=== PATIENT | female | born 1980 | race Caucasian/White ===

== ENCOUNTER 2016-11-22 01:08 | Observation (INO) ==
[2016-11-22] MEDS ORDERED: 0.9 % Sodium Chloride 1,000 ML IVC ONE (01:26)
--- NOTE | 2016-11-22 01:47 | Emergency Department Note ---
Disposition Clinical Impression: Pyelonephritis, Hypokalemia Disposition: Admitted As Inpatient Condition: Good Referrals: NONE,PCP [Primary Care Provider] - Forms: Work/School Release, ED Satisfaction Letter Time of Disposition: 04:25 Abdominal Pain HPI - General Chief Complaint: ED Urogenital-Female Stated Complaint: right flank pain Time Seen by Provider: 11/22/16 01:09 Source: patient, family - History of Present Illness HPI Narrative: Patient presents to the emergency department for evaluation of right flank and right-sided abdominal pain. She states this pain came on Thursday. She states that his been intermittent since Thursday. She has had some nausea. She also admits to urinary frequency urgency and dysuria. Denies vaginal bleeding or discharge. She reports a history of recurrent pyelonephritis. I have reviewed prior charts, her urine culture results revealed Escherichia coli which was sensitive to multiple medications to include cephalosporins. Pain Scale: 9 - Related Data Home Medications Medication Instructions Recorded Confirmed Ibuprofen [Motrin] 800 mg PO DAILY 09/23/16 11/22/16 Ranitidine HCl [Zantac 75] 150 mg PO BID 09/23/16 11/22/16 Allergies Allergy/AdvReac Type Severity Reaction Status Date / Time No Known Allergies Allergy Verified 10/30/16 13:36 Constitutional: Reports: fever, chills Eyes: Denies: vision change Cardiovascular: Denies: chest pain, palpitations, dyspnea on exertion Respiratory: Denies: cough, dyspnea Gastrointestinal: Reports: as per HPI Genitourinary: Reports: as per HPI Musculoskeletal: Reports: back pain Integumentary: Denies: rash Neurological: Reports: headache. Denies: weakness, numbness, paresthesias Abdominal Pain PMH - Past Medical History Medical history: Reports: arthritis, migraine Female Surgical History: Reports: other [employer] history: Reports: bilateral tubal ligation Psychiatric history: Reports: panic disorder - Social History Smoking status: Current every day smoker Alcohol use: Reports: rarely Drug use: Reports: none Physical Exam - General Limitations: no limitations General appearance: alert, in no apparent distress - Head Head exam: atraumatic, normocephalic, normal inspection - Eye Eye exam: Present: normal appearance, PERRL, EOMI. Absent: scleral icterus - ENT ENT exam: normal exam, normal oropharynx, mucous membranes moist, TM's normal bilaterally - Neck Neck exam: Present: normal inspection, full ROM. Absent: tenderness, meningismus - Respiratory Respiratory exam: Present: normal lung sounds bilaterally - Cardiovascular Cardiovascular exam: Present: tachycardia, normal heart sounds - Abdominal Exam Abdominal exam: Present: soft, Non-Tender, normal bowel sounds. Absent: tenderness, distention, guarding, rebound, rigidity - Extremities Exam Extremities exam: Present: normal inspection, full ROM. Absent: tenderness, pedal edema, calf tenderness - Back Exam Back exam: Present: CVA tenderness (R). Absent: CVA tenderness (L) - Neurological Exam Neurological exam: Present: alert, oriented X3, CN II-XII intact - Psychiatric Psychiatric exam: Present: normal affect, normal mood - Skin Skin exam: Present: warm, dry, intact, normal color Course Course Narrative: 0424: Temperature 98.7. Heart rate 105. Blood pressure 128/73. Patient will be admitted to the hospitalist service for treatment of bilateral pyelonephritis with associated hypokalemia. Vital Signs Temperature 104.0 F H 11/22/16 01:11 Pulse Rate 139 11/22/16 01:11 Respiratory Rate 20 11/22/16 01:11 Blood Pressure 155/78 11/22/16 01:11 O2 Sat by Pulse Oximetry 98 11/22/16 01:11 Temperature 104.0 F H 11/22/16 01:11 Pulse Rate 115 11/22/16 03:54 Respiratory Rate 18 11/22/16 03:54 Blood Pressure 128/74 11/22/16 03:54 O2 Sat by Pulse Oximetry 96 11/22/16 03:54 Oxygen Delivery Oxygen Delivery Room Air Abdominal Pain - Medical Records Medical records reviewed: Yes I reviewed the patient's medical records. - Lab Data Lab results reviewed: Yes I reviewed the patient's lab results. Result diagrams: 11/22/16 02:05 11/22/16 02:05 Lab Results 11/22/16 11/22/16 11/22/16 Range/Units 02:05 02:05 02:05 WBC 12.5 H (4.3-11.1) K/mcL RBC 3.50 L (3.82-4.97) M/mcL Hgb 10.9 L (11.5-15.4) g/dL Hct 31.8 L (35.3-44.9) % MCV 90.9 (83.0-100.0) fL MCH 31.1 (28.0-33.3) pg MCHC 34.3 (31.6-35.5) g/dL RDW 12.9 (11.5-14.5) % Plt Count 313 (140-400) K/mcL MPV 10.1 (9.4-12.4) fL Immature Gran % 0.4 (0-4) % Seg Neutrophils % 77.4 % Lymphocytes % 10.3 % Monocytes % 9.6 % Eosinophils % 2.2 % Basophils % 0.1 % Neutrophils # 9.7 H (1.6-8.9) K/mcL Lymphocytes # 1.3 (0.6-4.6) K/mcL Monocytes # 1.2 (0.0-1.3) K/mcL Eosinophils # 0.3 (0.0-0.6) K/mcL Basophils # 0.0 (0.0-0.2) K/mcL VBG Lactic Acid 0.7 (0.5-2.2) mmol/L Sodium 134 L (136-145) mEq/L Potassium 2.8 L (3.5-4.5) mEq/L Chloride 96 L (98-109) mEq/L Carbon Dioxide 24 (19-29) mEq/L BUN 10 (7-20) mg/dL Creatinine 0.71 (0.57-1.11) mg/dL Est GFR ( Amer) > 60 (> 60) Est GFR (Non-Af Amer) > 60 (> 60) BUN/Creatinine Ratio 14 (6-26) Glucose 111 H (70-99) mg/dL Calculated Osmolality 278 L (280-300) Calcium 9.2 (8.6-10.8) mg/dL Total Bilirubin 0.4 (0.2-1.2) mg/dL Direct Bilirubin 0.2 (0.0-0.5) mg/dL Indirect Bilirubin 0.2 (0.0-1.2) mg/dL AST 11 (5-34) Units/L ALT 11 (0-55) Units/L Alkaline Phosphatase 133 H (38-126) Units/L Serum Total Protein 7.2 (6.0-8.3) g/dL Albumin 2.5 L (3.5-5.0) g/dL Globulin 4.7 H (2.4-3.5) g/dL Albumin/Globulin Ratio 0.5 L (1.1-2.2) Amylase 16 L (25-125) Units/L Lipase < 4 L (8-78) Units/L Urine Color (Yellow) Urine Clarity (Clear) Urine pH (5.0-8.0) pH Units Ur Specific [place] (1.010-1.025) Urine Protein (Neg-Trace) mg/dL Urine Glucose (UA) (Normal) mg/dL Urine Ketones (Negative) mg/dL Urine Blood (Negative) Urine Nitrite (Negative) Urine Bilirubin (Negative) Urine Urobilinogen (Normal) mg/dL Ur Leukocyte Esterase (Negative) Urine Microscopic RBC (0-3) per hpf Urine Microscopic WBC (0-3) per hpf Ur Squamous Epith Cells (None-Few) per lpf Urine Bacteria (None-Few) per hpf Urine Mucus (Few) Ur Culture Indicated? (NO) Urine Test (Negative) Urine Opiates Screen (Oxddhz=657) ng/mL Ur Oxycodone Screen (Cutoff= 100) ng/mL Ur Barbiturates Screen (Cxprsi=539) ng/mL Ur Phencyclidine Scrn (Cutoff=25) ng/mL Ur Amphetamines Screen (Hrfjtm=4353) ng/mL U Benzodiazepines Scrn (Xvodjn=363) ng/mL Urine Cocaine Screen (Cutoff= 300) ng/mL U Marijuana (THC) Screen (Cutoff = 50) ng/mL 11/22/16 11/22/16 11/22/16 Range/Units 02:15 02:15 02:15 WBC (4.3-11.1) K/mcL RBC (3.82-4.97) M/mcL Hgb (11.5-15.4) g/dL Hct (35.3-44.9) % MCV (83.0-100.0) fL MCH (28.0-33.3) pg MCHC (31.6-35.5) g/dL RDW (11.5-14.5) % Plt Count (140-400) K/mcL MPV (9.4-12.4) fL Immature Gran % (0-4) % Seg Neutrophils % % Lymphocytes % % Monocytes % % Eosinophils % % Basophils % % Neutrophils # (1.6-8.9) K/mcL Lymphocytes # (0.6-4.6) K/mcL Monocytes # (0.0-1.3) K/mcL Eosinophils # (0.0-0.6) K/mcL Basophils # (0.0-0.2) K/mcL VBG Lactic Acid (0.5-2.2) mmol/L Sodium (136-145) mEq/L Potassium (3.5-4.5) mEq/L Chloride (98-109) mEq/L Carbon Dioxide (19-29) mEq/L BUN (7-20) mg/dL Creatinine (0.57-1.11) mg/dL Est GFR ( Amer) (> 60) Est GFR (Non-Af Amer) (> 60) BUN/Creatinine Ratio (6-26) Glucose (70-99) mg/dL Calculated Osmolality (280-300) Calcium (8.6-10.8) mg/dL Total Bilirubin (0.2-1.2) mg/dL Direct Bilirubin (0.0-0.5) mg/dL Indirect Bilirubin (0.0-1.2) mg/dL AST (5-34) Units/L ALT (0-55) Units/L Alkaline Phosphatase (38-126) Units/L Serum Total Protein (6.0-8.3) g/dL Albumin (3.5-5.0) g/dL Globulin (2.4-3.5) g/dL Albumin/Globulin Ratio (1.1-2.2) Amylase (25-125) Units/L Lipase (8-78) Units/L Urine Color Yellow (Yellow) Urine Clarity Clear (Clear) Urine pH 6.5 (5.0-8.0) pH Units Ur Specific [place] 1.010 (1.010-1.025) Urine Protein 100 H (Neg-Trace) mg/dL Urine Glucose (UA) Normal (Normal) mg/dL Urine Ketones Negative (Negative) mg/dL Urine Blood Large H (Negative) Urine Nitrite Positive A (Negative) Urine Bilirubin Negative (Negative) Urine Urobilinogen Normal (Normal) mg/dL Ur Leukocyte Esterase Trace H (Negative) Urine Microscopic RBC 5-15 H (0-3) per hpf Urine Microscopic WBC 30-50 H (0-3) per hpf Ur Squamous Epith Cells Few (None-Few) per lpf Urine Bacteria Many H (None-Few) per hpf Urine Mucus Few (Few) Ur Culture Indicated? YES A (NO) Urine Test Negative (Negative) Urine Opiates Screen Negative (Wktqla=205) ng/mL Ur Oxycodone Screen Negative (Cutoff= 100) ng/mL Ur Barbiturates Screen Negative (Ncivca=123) ng/mL Ur Phencyclidine Scrn Negative (Cutoff=25) ng/mL Ur Amphetamines Screen Positive H (Sshgqy=5836) ng/mL U Benzodiazepines Scrn Negative (Jlunjo=909) ng/mL Urine Cocaine Screen Negative (Cutoff= 300) ng/mL U Marijuana (THC) Screen Positive H (Cutoff = 50) ng/mL ITS Impressions Abdomen/Pelvis CT 11/22/16 01:45 IMPRESSION: Enhancement pattern of both kidneys suggests bilateral pyelonephritis. D/ / Sean Robles MD / Sean Robles MD Interpreting Provider: Sean Robles MD - Radiology Data Radiology results reviewed: Yes I reviewed the patient's radiology results.
[2016-11-22 02:14] LABS: Basophils % 0.1 %; Eosinophils # 0.3 K/mcL (0.0-0.6); Eosinophils % 2.2 %; Hematocrit 31.8 % (35.3-44.9); Hemoglobin 10.9 g/dL (11.5-15.4); Immature Granulocytes % 0.4 % (0-4); Lymphocytes # 1.3 K/mcL (0.6-4.6); Lymphocytes % 10.3 %; Mean Corpuscular HGB Conc 34.3 g/dL (31.6-35.5); Mean Corpuscular Hemoglobin 31.1 pg (28.0-33.3); Mean Corpuscular Volume 90.9 fL (83.0-100.0); Mean Platelet Volume 10.1 fL (9.4-12.4); Monocytes # 1.2 K/mcL (0.0-1.3); Monocytes % 9.6 %; Neutrophils # 9.7 K/mcL (1.6-8.9); Platelet Count 313 K/mcL (140-400); Red Cell Distribution Width 12.9 % (11.5-14.5); Segmented Neutrophils % 77.4 %
[2016-11-22 02:22] LABS: Bilirubin,Urine Negative (Negative); Blood,Urine Large (Negative); Clarity,Urine Clear (Clear); Color,Urine Yellow (Yellow); Glucose,Urine (UA) Normal (Normal); Ketones,Urine Negative (Negative); Leukocyte Esterase,Urine Trace (Negative); Nitrite,Urine Positive (Negative); PH,Urine 6.5 pH Units (5.0-8.0); Protein,Urine 100 mg/dL (Neg-Trace); Urobilinogen,Urine Normal (Normal)
[2016-11-22 02:28] LABS: Amphetamine Screen,Urine Positive ng/mL (Cutoff=1000); Barbiturate Screen,Urine Negative ng/mL (Cutoff=200); Benzodiazepines Screen,Urine Negative ng/mL (Cutoff=200); Cannabinoid Screen,Urine Positive ng/mL (Cutoff = 50); Cocaine Screen,Urine Negative ng/mL (Cutoff= 300); Opiate Screen,Urine Negative ng/mL (Cutoff=300); Phencyclidine Screen,Urine Negative ng/mL (Cutoff=25)
[2016-11-22 02:31] LABS: Alanine Aminotransferase 11 Units/L (0-55); Albumin 2.5 g/dL (3.5-5.0); Albumin/Globulin Ratio 0.5 (1.1-2.2); Alkaline Phosphatase 133 Units/L (38-126); Amylase 16 Units/L (25-125); Aspartate Amino Transferase 11 Units/L (5-34); BUN/Creatinine Ratio 14 (6-26); Bilirubin,Direct 0.2 mg/dL (0.0-0.5); Bilirubin,Indirect 0.2 mg/dL (0.0-1.2); Bilirubin,Total 0.4 mg/dL (0.2-1.2); Blood Urea Nitrogen 10 mg/dL (7-20); Calcium 9.2 mg/dL (8.6-10.8); Carbon Dioxide 24 mEq/L (19-29); Chloride 96 mEq/L (98-109); Globulin 4.7 g/dL (2.4-3.5); Glucose 111 mg/dL (70-99); Lipase < 4 Units/L (8-78); Osmolality,Calculated 278 (280-300); Potassium 2.8 mEq/L (3.5-4.5); Sodium 134 mEq/L (136-145); Total Protein 7.2 g/dL (6.0-8.3); eGFR For African Americans > 60 (> 60); eGFR For Non-African Americans > 60 (> 60)
[2016-11-22 02:32] LABS: Bacteria,Urine Many per hpf (None-Few); Mucus,Urine Few (Few); Squamous Epithelial Cell,Urine Few per lpf (None-Few); WBC,Urine 30-50 per hpf (0-3)
[2016-11-22] MEDS ORDERED: Naloxone 0.4 MG/ML INJ IVP PRN (04:26)
[2016-11-22] MEDS ORDERED: 0.9 % Sodium Chloride 1,000 ML IVC SCH (04:30)
[2016-11-22] MEDS: 0.45 % Sodium Chloride w/KCl 20 MEQ/1,000 ML MLS IVC SCH ×2 (05:39→14:46)
[2016-11-22] MEDS: Acetaminophen 325 MG TABLET PO PRN ×2 (08:30→14:45)
[2016-11-22] MEDS: Famotidine 20 MG TABLET PO SCH ×2 (09:32→20:22)
--- NOTE | 2016-11-22 15:24 | Internal Med History&Physical ---
Date of Encounter: 11/22/16 Time of Encounter: 14:55 Assessment and Plan (1) Pyelonephritis Current visit: Yes Status: Acute She was given Rocephin in emergency room. Continue this and add Ethan ARSHAD with lactobacillus. Culture has been ordered. (2) Hypokalemia Current visit: Yes Status: Acute She was ordered supplemental potassium. We will recheck labs in a.m. Internal Medicine - H&P: HPI Chief complaint: Back pain Admitted From: Home Plans for Post Hospital Care: Home History of present illness: Ms. Reddy is a 35 year old female who came to emergency room complaining of right flank and abdominal pain onset November 18. She had nausea with 1 episode of vomiting. She denies diarrhea. She came to emergency room and was evaluated with CT scan showing evidence of bilateral pyelonephritis. She was admitted to [facility] floor for ongoing care needs. She reports she has not had previous pyelonephritis. She had urinary tract infections as a child. She has urinary tenesmus with stress incontinence. She denies hematuria or known kidney stones. Past Med Surg Social Fam HX - Past Medical History Medical history: arthritis, migraine Psychiatric history: panic disorder - Social History Smoking Status: Current every day smoker Smokeless Tobacco Status: No Alcohol use: rarely Drug use: none - Family History Father Hx Family Cardiac Disorders: Yes (CHF, HTN) Internal Medicine - H&P: Meds Ibuprofen [Motrin] 800 mg PO DAILY 09/23/16 [History] Ranitidine HCl [Zantac 75] 150 mg PO BID 09/23/16 [History] 3 Allergy/AdvReac Type Severity Reaction Status Date / Time No Known Allergies Allergy Verified 10/30/16 13:36 All Systems PM: A 10-system review of systems was performed and is negative for pertinent findings except as documented above in the HPI. Review of systems: Note: She states her weight has decreased approximately 20 pounds in the past month and a half. She reports she is under a lot of stress going through a divorce. Current Ivester: She denies [place] hypertension heart failure angina DVT or pulmonary embolus Respiratory: She has smoked since age 17 up to one pack per day. She denies chronic lung disease and does not use home oxygen GI: She denies disorders of her liver gallbladder or exocrine pancreas : As per history of present illness Neurologic: She denies large distribution strokes or seizures. Endocrine: She denies diabetes thyroid disease or hyperlipidemia Hematology/oncology: She denies blood disorders cancers or anemia Psychiatric: She has anxiety but denies depression or other mental health issues Musk skeletal: She has been diagnosed with psoriatic arthritis and has taken Enbrel. She denies other bone joint or muscle disorders. - Constitutional Vitals: Temp Pulse Resp BP Pulse Ox 98.5 F 89 16 110/69 94 11/22/16 15:07 11/22/16 15:07 11/22/16 15:07 11/22/16 15:07 11/22/16 15:07 Exam: Gen.: She is a well-developed well-nourished female lying in bed who appears in no acute distress at rest. She complaints of back pain on movement. HEENT: Head is atraumatic and normocephalic. Eyes: EOMI. There is no scleral icterus. Mouth: Mucosa is moist. Neck: Supple and nontender. There is no thyromegaly or adenopathy noted. Heart: Regular without murmurs gallops or ectopics Lungs: No wheezes or crackles are heard. Back: She has tenderness bilaterally on flank percussion, more on the right than the left. Abdomen: Soft and nontender. No masses or guarding are noted. Extremities: There is no cyanosis edema or clubbing noted. Dorsalis pedis and posttibial pulses are 1-2 over 2 bilaterally. Neurologic: Mental status: She is talkative and a good historian. Cranial nerves: Smile is symmetric. Forehead wrinkles bilaterally. Tongue protrudes midline. EOMI. Motor: There is no pronator drift. Cerebellar: Finger to nose is intact bilaterally. Skin: Warm and dry Internal Med - H&P Results - Labs CBC & Chem 7: 11/22/16 02:05 11/22/16 02:05
[2016-11-22] MEDS ORDERED: Ibuprofen 600 MG TABLET PO PRN (16:53)
[2016-11-22] MEDS: Ibuprofen 600 MG TABLET PO PRN (17:10)
[2016-11-22] MEDS: Sulfamethoxazole/Trimeth DS 1 EACH TABLET PO SCH (20:22)
[2016-11-22] MEDS: Lactobacillus 1 EACH CAP.SPRINK PO SCH (20:22)
[2016-11-22 21:03] LABS: Acinetobacter baumannii by PCR Not Detected (Not Detect); Candida albicans by PCR Not Detected (Not Detect); Candida glabrata by PCR Not Detected (Not Detect); Candida krusei by PCR Not Detected (Not Detect); Candida parapsilosis by PCR Not Detected (Not Detect); Candida tropicalis by PCR Not Detected (Not Detect); Enterococcus by PCR Not Detected (Not Detect); Escherichia coli by PCR ***DETECTED*** (Not Detect); Klebsiella oxytoca by PCR Not Detected (Not Detect); Klebsiella pneumoniae by PCR Not Detected (Not Detect); Pseudomonas aeruginosa by PCR Not Detected (Not Detect); Serratia marcescens by PCR Not Detected (Not Detect); Staphylococcus aureus by PCR Not Detected (Not Detect); Streptococcus agalactiae(B)PCR Not Detected (Not Detect); Streptococcus by PCR Not Detected (Not Detect); Streptococcus pneumoniae PCR Not Detected (Not Detect); Streptococcus pyogenes (A) PCR Not Detected (Not Detect); blaKPC Carbapenem-Resist Gene Not Detected (Not Detect); mecA Methicillin-Resist Gene Not Detected (Not Detect); vanA/B Vancomycin-Resist Genes Not Detected (Not Detect)
[2016-11-23] MEDS: 0.45 % Sodium Chloride w/KCl 20 MEQ/1,000 ML MLS IVC SCH ×2 (01:06→09:48)
[2016-11-23 06:31] LABS: Basophils % 0.1 %; Eosinophils # 0.4 K/mcL (0.0-0.6); Eosinophils % 4.7 %; Hematocrit 27.6 % (35.3-44.9); Immature Granulocytes % 0.2 % (0-4); Lymphocytes # 2.3 K/mcL (0.6-4.6); Lymphocytes % 24.3 %; Mean Corpuscular HGB Conc 32.6 g/dL (31.6-35.5); Mean Corpuscular Hemoglobin 30.8 pg (28.0-33.3); Mean Corpuscular Volume 94.5 fL (83.0-100.0); Mean Platelet Volume 10.5 fL (9.4-12.4); Monocytes # 1.1 K/mcL (0.0-1.3); Monocytes % 11.2 %; Neutrophils # 5.6 K/mcL (1.6-8.9); Platelet Count 297 K/mcL (140-400); Red Blood Count 2.92 M/mcL (3.82-4.97); Red Cell Distribution Width 13.4 % (11.5-14.5); Segmented Neutrophils % 59.5 %
[2016-11-23 06:47] LABS: BUN/Creatinine Ratio 10 (6-26); Blood Urea Nitrogen 6 mg/dL (7-20); Calcium 8.5 mg/dL (8.6-10.8); Carbon Dioxide 24 mEq/L (19-29); Chloride 107 mEq/L (98-109); Glucose 133 mg/dL (70-99); Magnesium 1.4 mg/dL (1.6-2.6); Osmolality,Calculated 294 (280-300); Sodium 142 mEq/L (136-145); eGFR For African Americans > 60 (> 60); eGFR For Non-African Americans > 60 (> 60)
[2016-11-23] MEDS: Sulfamethoxazole/Trimeth DS 1 EACH TABLET PO SCH ×2 (09:47→21:26)
[2016-11-23] MEDS: Lactobacillus 1 EACH CAP.SPRINK PO SCH ×2 (09:47→21:26)
[2016-11-23] MEDS: Famotidine 20 MG TABLET PO SCH (09:48)
--- NOTE | 2016-11-23 09:54 | Internal Med Progress Note ---
Date of Encounter: 11/23/16 Time of Encounter: 09:45 - Assessment and plan (1) Pyelonephritis Current Visit: Yes Status: Acute Assessment and plan: November 23. Blood cultures show Escherichia coli. Sensitivity report is pending. Continue Rocephin, Septra, and lactobacillus. (2) Hypokalemia Current Visit: Yes Status: Acute Assessment and plan: November 23. Resolved. Will discontinue IV fluids and supplemental potassium. (3) Anemia Current Visit: Yes Status: Acute Assessment and plan: November 23. New since 10/30/2016. Anemia testing is pending. Qualifiers: Anemia type: unspecified type Qualified Code(s): D64.9 - Anemia, unspecified (4) Hypomagnesemia Current Visit: Yes Status: Acute Assessment and plan: November 23. Will give magnesium oxide. - Subjective Interval history: November 23. She has no new complaints. - Constitutional Vitals: Temp Pulse Resp BP Pulse Ox 98.9 F 88 16 115/70 96 11/23/16 06:51 11/23/16 06:51 11/23/16 06:51 11/23/16 06:51 11/23/16 06:51 Exam: She is resting comfortably on the side of the bed and appears in no acute distress. I reviewed her medications and lab results. Internal Medicine: Result - Labs CBC & Chem 7: 11/23/16 05:55 11/23/16 05:55 Labs: Short CBC 11/23/16 Range/Units 05:55 WBC 9.5 (4.3-11.1) K/mcL Hgb 9.0 L D (11.5-15.4) g/dL Hct 27.6 L (35.3-44.9) % Plt Count 297 (140-400) K/mcL Neutrophils # 5.6 (1.6-8.9) K/mcL BMP 11/23/16 05:55 Sodium 142 D Potassium 4.0 D Chloride 107 Carbon Dioxide 24 BUN 6 L Creatinine 0.61 Glucose 133 H Calcium 8.5 L Consult Discharge Plan - Plan Referrals: NONE,PCP [Primary Care Provider] - 1 week
[2016-11-23] MEDS ORDERED: Famotidine 20 MG TABLET PO PRN (09:57)
[2016-11-23] MEDS: Ibuprofen 600 MG TABLET PO PRN ×2 (09:57→21:25)
[2016-11-23] MEDS: Magnesium Oxide 400 MG TABLET PO SCH ×2 (10:02→21:26)
[2016-11-23 16:18] LABS: % Iron Saturation 6 % (15-50); Iron 12 mcg/dL (50-170); Transferrin 144 mg/dL (180-382)
[2016-11-23 16:38] LABS: Ferritin 416 ng/ml (5-204)
[2016-11-23 16:53] LABS: Folate 3.2 ng/mL (7.0-31.4)
[2016-11-24 07:58] VITALS: BP 126/82
[2016-11-24] MEDS: Lactobacillus 1 EACH CAP.SPRINK PO SCH (08:01)
[2016-11-24] MEDS: Sulfamethoxazole/Trimeth DS 1 EACH TABLET PO SCH (08:01)
[2016-11-24] MEDS: Magnesium Oxide 400 MG TABLET PO SCH (08:01)
--- NOTE | 2016-11-24 09:50 | Discharge Summary ---
Date of Encounter: 11/24/16 Time of Encounter: 09:35 - Discharge Diagnosis (1) Pyelonephritis Priority: Primary Status: Acute (2) Hypokalemia Priority: Secondary Status: Resolved (3) Anemia Priority: Secondary Status: Acute Qualifiers: Anemia type: unspecified type Qualified Code(s): D64.9 - Anemia, unspecified (4) Hypomagnesemia Priority: Secondary Status: Acute - Discharge Medications Prescriptions: Amoxicillin/Clavulanate [Augmentin] 875 mg PO BIDWM #14 tablet Ascorbic Acid [Vitamin C] 500 mg PO DAILY #30 tablet.er Ferrous Sulfate 325 mg PO DAILY #30 tablet. Folic Acid 1 mg PO DAILY #30 tablet Lactobacillus [Culturelle] 1 each PO BID #14 cap.sprink Magnesium Oxide [Mag-Ox] 400 mg PO DAILY #7 tablet Home Medications: Ibuprofen [Motrin] 800 mg PO DAILY 09/23/16 [History] Ranitidine HCl [Zantac 75] 150 mg PO BID 09/23/16 [History] Amoxicillin/Clavulanate [Augmentin] 875 mg PO BIDWM #14 tablet 11/24/16 [Rx] Ascorbic Acid [Vitamin C] 500 mg PO DAILY #30 tablet.er 11/24/16 [Rx] Ferrous Sulfate 325 mg PO DAILY #30 tablet. 11/24/16 [Rx] Folic Acid 1 mg PO DAILY #30 tablet 11/24/16 [Rx] Lactobacillus [Culturelle] 1 each PO BID #14 cap.sprink 11/24/16 [Rx] Magnesium Oxide [Mag-Ox] 400 mg PO DAILY #7 tablet 11/24/16 [Rx] Allergies/Adverse Reactions: 3 Allergy/AdvReac Type Severity Reaction Status Date / Time No Known Allergies Allergy Verified 10/30/16 13:36 Date of admission: 11/22/16 04:33 Primary care physician: PCP NONE - Patient Status Disposition: Home, Self-Care Condition: Good Functional capacity at discharge: independent ambulation Overall status at discharge: patient is progressing back to baseline - Discharge Instructions Follow Up With: NONE,PCP [Primary Care Provider] - 1 week - Diet and Activity Activity: resume usual activities as tolerated Diet: advance to your usual diet Hospital course: Ms. Reddy is a 35 year old female who came to emergency room complaining of right flank and abdominal pain onset November 18. She had nausea with 1 episode of vomiting. She denies diarrhea. She came to emergency room and was evaluated with CT scan showing evidence of bilateral pyelonephritis. She was admitted to [facility] floor for ongoing care needs. Initial orders were written by the emergency room physician. I saw her on November 22 and performed a history and physical. She was started empirically on Rocephin through emergency room. I added Septra with lactobacillus. Blood and urine cultures returned showing Escherichia coli. She had good clinical response to the antibiotic with WBC normalizing to 9.5 and resolution of the left shift. She will continue on Augmentin with lactobacillus for 7 days at discharge. Supplemental potassium was given and hypokalemia resolved. Magnesium level returned low at 1.4 and she was started on magnesium oxide. This will be continued for 7 days at discharge. Anemia testing showed iron 12, transferrin saturation 6%, transferrin 144, ferritin 416, B12 1117, and folate 3.2. She will be discharged with folate and iron with vitamin C supplements. There were no other new problems and on November 24 she felt stable for discharge home. She will follow with a PCP within one week. - Time Spent with Patient Total time spent providing and/or coordinating discharge services: - Constitutional Vitals: Temp Pulse Resp BP Pulse Ox 98.8 F 72 15 126/82 97 11/24/16 07:57 11/24/16 07:57 11/24/16 07:57 11/24/16 07:57 11/24/16 07:57
== END 2016-11-24 10:30 | disposition home or self-care (01) ==
LOC: EMEROOPIK 01:08 → INPPIK 01:08
PROVIDERS: ADMIT Internal Medicine; ATTEND Internal Medicine